=== PATIENT | male | born 1945 | race Caucasian/White ===

== ENCOUNTER → 2019-12-20 11:07 | Outpatient (CLI) | payer MEDICARE ==
--- NOTE | ~2019-12-20 | EC ---
PATIENT:OLGA DESAI DATE OF SERVICE: 12/20/19 SEX: M MEDICAL RECORD: [id number] DATE OF : 43 LOCATION:[facility] AGE OF PATIENT: 74 ADMISSION DATE: 12/20/19 REFERRING PHYSICIAN: INTERPRETING PHYSICIAN: BENSON WOOTEN MD ECHOCARDIOGRAM REPORT ECHO CHARGES 4 ECHO COMPLETE Date: 12/20/19 CLINICAL DIAGNOSIS: DYSPNEA/ATRIAL FIB ECHOCARDIOGRAPHIC MEASUREMENTS (adult normal given) AC root (d.<3.7cm) 3.4 cm LV Septum d (<1.2 cm> 1.5 cm Valve Excursion 1.4 cm LV Septum (systole) 1.7 cm Left Atria (s.<4.0cm> 4.6 cm LVPW d(<1.2cm) 1.6 cm RV (d.<2.3cm) 3.6 cm LVPW (sytole) 2.1 cm LV diastole(<5.6CM) 4.9 cm MV E-F(>70mm/sec) cm LV systole 3.1 cm LVOT Diameter 2.2 cm MV exc.(>10mm) cm Est.ejection fraction (50-75%) % DOPPLER: LVIT cm/sec A 70.0 cm/sec E 32.0 cm/sec LA cm/sec RVSP 32 mmHg LVOT 83 cm/sec AOP1/2T 470 m/s Asc. Ao 113 cm/sec RVOT 71 cm/sec RA cm/sec PA 76 cm/sec AV Gradient Peak 5.11 mmHg AV Mean 2.87 mmHg AV Area 3.0 cm MV Gradient Peak 3.60 mmHg MV Mean 1.28 mmHg MV Area cm COMMENTS: Rubbish Collection Supervisor: Lexa MCKEON Valet Parker: 1 Dr. Wooten TAPE# PACS Pericardial Effusion N DATE OF SERVICE: 12/20/2019 PROCEDURE: Echocardiogram. FINDINGS: 1. Left ventricular chamber size is within normal limits. Left ventricular systolic function is normal. Overall ejection fraction estimated at 55%. 2. Left atrium, right atrium, and right ventricle chamber sizes are within normal limits. 3. Valvular structures have normal structure and motion. ECHOCARDIOGRAM REPORT [id number] OLGA DESAI 4. Doppler interrogation reveals mild aortic insufficiency, mild mitral regurgitation, mild tricuspid regurgitation, no other valvular insufficiency or stenosis. 5. No evidence of pericardial effusion or left ventricular thrombus. TRANSINT:[id number] Voice Confirmation ID: [id number] DOCUMENT ID: [id number] BENSON WOOTEN MD CC: [id number] DICTATION DATE: 12/20/19 1226 RESEARCH COORDINATOR: 12/20/19 1537 REG [facility] [address] [id number]
== END | disposition home or self-care (01) ==
LOC: D.HCCARDIO 11:07 → D.HCCECHO 12:30
PROVIDERS: ATTEND Internal Medicine Interventional Cardiology
DX: R06.00 Dyspnea, unspecified (principal)

== ENCOUNTER → 2019-12-25 14:50 | Outpatient (CLI) | payer MEDICARE | END | disposition home or self-care (01) | LOC: D.HCCARDIO 14:30 | PROVIDERS: ATTEND Internal Medicine Cardiovascular Disease | DX: R06.09 Other forms of dyspnea (principal) ==

== ENCOUNTER → 2020-07-05 07:34 | Outpatient (CLI) | payer MEDICARE | END | disposition home or self-care (01) | LOC: D.MRI 07:34 | PROVIDERS: ATTEND Clinical Nurse Specialist Family Health | DX: M25.511 Pain in right shoulder (principal) ==

== ENCOUNTER → 2020-07-11 22:00 | Outpatient (CLI) | payer MEDICARE | END | disposition home or self-care (01) | LOC: D.LABREF 22:00 | PROVIDERS: ATTEND Orthopaedic Surgery | DX: M19.011 Primary osteoarthritis, right shoulder (principal) ==